=== PATIENT | female | born 1980 | race Two or more races ===

== ENCOUNTER 2017-10-10 03:01 | Emergency (ER) | payer MEDICAID ==
[~2017-10-10] VITALS: Ht 167.6 cm; Wt 75.0 kg
[2017-10-10 05:26] LABS: CLARITY URINE TURBID (CLEAR); COLOR URINE DARK YELLOW (YELLOW); KETONES URINE TRACE (NEGATIVE); LEUKOCYTE ESTERASE URINE 2+ (NEGATIVE); NITRITE URINE NEGATIVE (NEGATIVE); OCCULT BLOOD URINE 3+ (NEGATIVE); PROTEIN URINE 1+ (NEGATIVE); SPECIFIC GRAVITY URINE 1.032 (1.005-1.030)
[2017-10-10] MEDS ORDERED: SODIUM CHLORIDE 0.9% 1,000 ML IV ONE (06:34)
[2017-10-10] MEDS ORDERED: ACETAMINOPHEN 325MG TABLET PO ONE (06:45)
[2017-10-10 07:22] LABS: BASOPHILS % 0.6 % (0.0-2.0); EOSINOPHILS % 0.9 % (0.0-5.0); HEMATOCRIT. 36.5 % (36.0-48.0); HEMOGLOBIN. 12.2 g/dL (12.0-16.0); LYMPHOCYTES % 19.6 % (20.0-50.0); MEAN CORPUSCULAR HEMOGLOBIN 28.7 pg (28.0-32.0); MEAN CORPUSCULAR VOLUME 85.3 fL (81.0-99.0); MEAN PLATELET VOLUME 9.3 fl (7.4-10.4); MONOCYTES % 7.2 % (2.0-8.0); NEUTROPHILS % 71.7 % (40.0-76.0); PLATELET 216 x1000/uL (130-400); RED BLOOD CELL COUNT 4.27 mill/uL (4.2-5.4); RED CELL DISTRIBUTION WIDTH 12.8 % (11.6-14.6)
[2017-10-10 07:35] LABS: CHLORIDE 104 mEq/L (98-107)
[2017-10-10 07:58] LABS: B-HCG QUANTITATIVE 111001 mIU/mL (<3)
[2017-10-10 09:12] VITALS: BP 107/72
== END 2017-10-10 10:24 | disposition home or self-care (01) ==
LOC: ER 04:37
DX: O23.41 Unspecified infection of urinary tract in pregnancy, first trimester (principal); Z3A.09 9 weeks gestation of pregnancy; Z98.890 Other specified postprocedural states
CPT/HCPCS: 36415; 76801; 76817; 80053; 81003; 84702; 85025; 86850; 86900; 86901; 87077; 87086; 96360; 99285; J7030; Z7610

== ENCOUNTER 2017-10-18 13:26 | Emergency (ER) | payer MEDICAID ==
[~2017-10-18] VITALS: Ht 167.6 cm; Wt 72.2 kg
[2017-10-18] MEDS ORDERED: SODIUM CHLORIDE 0.9% 1,000 ML IV ONE (14:30)
[2017-10-18] MEDS ORDERED: METOCLOPRAMIDE HCL 10MG/2ML VIAL IV ONE (14:30)
[2017-10-18 14:44] LABS: BASOPHILS % 0.7 % (0.0-2.0); EOSINOPHILS % 0.7 % (0.0-5.0); HEMOGLOBIN. 12.3 g/dL (12.0-16.0); LYMPHOCYTES % 17.4 % (20.0-50.0); MEAN CORPUSCULAR HEMOGLOBIN 29.2 pg (28.0-32.0); MEAN CORPUSCULAR VOLUME 85.3 fL (81.0-99.0); MEAN PLATELET VOLUME 8.9 fl (7.4-10.4); MONOCYTES % 6.8 % (2.0-8.0); NEUTROPHILS % 74.4 % (40.0-76.0); PLATELET 221 x1000/uL (130-400); RED BLOOD CELL COUNT 4.22 mill/uL (4.2-5.4); RED CELL DISTRIBUTION WIDTH 12.8 % (11.6-14.6)
[2017-10-18 14:49] LABS: CHLORIDE 103 mEq/L (98-107)
[2017-10-18 14:51] LABS: PROTHROMBIN TIME 10.7 sec (9.4-11.6)
[2017-10-18 15:15] LABS: B-HCG QUANTITATIVE 98968 mIU/mL (<3)
[2017-10-18 17:33] LABS: CLARITY URINE CLEAR (CLEAR); COLOR URINE DARK YELLOW (YELLOW); KETONES URINE 2+ (NEGATIVE); LEUKOCYTE ESTERASE URINE NEGATIVE (NEGATIVE); NITRITE URINE NEGATIVE (NEGATIVE); OCCULT BLOOD URINE 2+ (NEGATIVE); PH URINE 5.5 (4.5-8.0); PROTEIN URINE TRACE (NEGATIVE); SPECIFIC GRAVITY URINE 1.029 (1.005-1.030)
[2017-10-18 19:46] VITALS: BP 100/59
== END 2017-10-18 19:46 | disposition home or self-care (01) ==
LOC: ER 18:04
DX: O21.9 Vomiting of pregnancy, unspecified (principal); Z98.890 Other specified postprocedural states; Z3A.10 10 weeks gestation of pregnancy
CPT/HCPCS: 36415; 80053; 81003; 81025; 83690; 84702; 85025; 85610; 96361; 96374; 99285; J2765; J7030; Z7610

== ENCOUNTER 2020-12-01 11:31 | Inpatient (IN) | payer MEDICAID ==
[~2020-12-01] VITALS: Ht 165.1 cm; Wt 73.5 kg
[2020-12-01] MEDS ORDERED: SODIUM CHLORIDE 0.9% 1,000 ML IV ONE (12:15)
[2020-12-01 13:17] LABS: BASOPHILS % 0.3 % (0.0-2.0); HEMATOCRIT. 36.6 % (36.0-48.0); HEMOGLOBIN. 12.4 g/dL (12.0-16.0); LYMPHOCYTES % 13.4 % (20.0-50.0); MEAN CORPUSCULAR HEMOGLOBIN 28.3 pg (28.0-32.0); MEAN CORPUSCULAR VOLUME 83.9 fL (81.0-99.0); MEAN PLATELET VOLUME 9.7 fl (7.4-10.4); MONOCYTES % 11.6 % (2.0-8.0); NEUTROPHILS % 74.7 % (40.0-76.0); PLATELET 100 x1000/uL (130-400); RED BLOOD CELL COUNT 4.37 mill/uL (4.2-5.4)
[2020-12-01 13:22] LABS: CLARITY URINE CLOUDY (CLEAR); COLOR URINE DARK YELLOW (YELLOW); KETONES URINE 2+ (NEGATIVE); LEUKOCYTE ESTERASE URINE TRACE (NEGATIVE); NITRITE URINE NEGATIVE (NEGATIVE); OCCULT BLOOD URINE 3+ (NEGATIVE); PH URINE 5.5 (4.5-8.0); PROTEIN URINE 3+ (NEGATIVE); SPECIFIC GRAVITY URINE 1.028 (1.005-1.030)
[2020-12-01 13:24] LABS: CHLORIDE 105 mEq/L (98-107)
[2020-12-01 13:26] LABS: PROTHROMBIN TIME 10.9 sec (9.6-11.0)
[2020-12-01 13:52] LABS: HCG SCREEN NEGATIVE
[2020-12-01 15:09] LABS: AMYLASE 143 IU/L (25-115)
[2020-12-01] MEDS ORDERED: PIPERACILLIN/TAZ 3.375G PREMIX 50 ML IV ONE (15:30)
[2020-12-01] MEDS ORDERED: POTASSIUM CHLORIDE 20MEQ TABLET SR PO ONE (15:45)
[2020-12-01] MEDS ORDERED: DIPHENHYDRAMINE 50MG/ML VIAL IV PRN (18:00)
[2020-12-01] MEDS ORDERED: CLONIDINE 0.1MG TABLET PO PRN (18:00)
[2020-12-01] MEDS ORDERED: MAGNESIUM/ALUMINUM HYDROXIDE/SIMETHICONE 30ML UDC PO PRN (18:00)
[2020-12-01] MEDS ORDERED: LOPERAMIDE 2MG/15ML UDC PO PRN (18:00)
[2020-12-01] MEDS: SODIUM CHLORIDE 0.9% 1,000 ML IV SCH (18:28)
[2020-12-01] MEDS ORDERED: LEVOFLOXACIN 500MG PREMIX 100 ML IV SCH (19:00)
[2020-12-01] MEDS: ACETAMINOPHEN 325MG TABLET PO PRN (22:05)
[2020-12-01 23:44] VITALS: BP 109/61
[2020-12-02] VITALS: BP 107/61
[2020-12-02 04:00] VITALS: BP 108/69
[2020-12-02] MEDS: SODIUM CHLORIDE 0.9% 1,000 ML IV SCH ×3 (04:24→23:55)
[2020-12-02] MEDS: ONDANSETRON HCL 4MG/2ML INJ IV PRN (04:24)
[2020-12-02] MEDS: ACETAMINOPHEN 325MG TABLET PO PRN ×4 (04:25→21:50)
[2020-12-02 06:29] LABS: BASOPHILS % 0.3 % (0.0-2.0); EOSINOPHILS % 0.2 % (0.0-5.0); HEMATOCRIT. 31.6 % (36.0-48.0); HEMOGLOBIN. 10.7 g/dL (12.0-16.0); LYMPHOCYTES % 17.2 % (20.0-50.0); MEAN CORPUSCULAR HEMOGLOBIN 28.3 pg (28.0-32.0); MEAN CORPUSCULAR VOLUME 83.3 fL (81.0-99.0); NEUTROPHILS % 71.3 % (40.0-76.0); PLATELET 83 x1000/uL (130-400); RED CELL DISTRIBUTION WIDTH 12.8 % (11.6-14.6)
[2020-12-02 06:51] LABS: CHLORIDE 107 mEq/L (98-107)
[2020-12-02 06:59] LABS: PHOSPHORUS 2.3 mg/dL (2.5-4.9)
[2020-12-02 08:00] VITALS: BP 101/53
[2020-12-02] MEDS ORDERED: POTASSIUM CHLORIDE INJ 40 MEQ in DEXT 5% WATER 250 ML IV ONE (08:00)
[2020-12-02] MEDS: PANTOPRAZOLE SODIUM 40 MG/VIAL IV SCH (08:55)
[2020-12-02 12:00] VITALS: BP 114/64
[2020-12-02] MEDS ORDERED: POTASSIUM CHLORIDE 20MEQ TABLET SR PO NR ×2 (13:23→16:15)
[2020-12-02 16:00] VITALS: BP 113/69
[2020-12-02] MEDS ORDERED: ERGOCALCIFEROL 50000UNITS CAPSULE PO NR (16:00)
[2020-12-02 20:00] VITALS: BP 115/70
[2020-12-03] VITALS: BP 104/56
[2020-12-03] MEDS: ONDANSETRON HCL 4MG/2ML INJ IV PRN ×3 (02:19→14:46)
[2020-12-03 04:00] VITALS: BP 118/65
[2020-12-03] MEDS: ACETAMINOPHEN 325MG TABLET PO PRN ×3 (06:05→17:13)
[2020-12-03 07:34] LABS: CHLORIDE 105 mEq/L (98-107)
[2020-12-03 08:00] VITALS: BP 99/66
[2020-12-03] MEDS ORDERED: POTASSIUM CHLORIDE 20MEQ TABLET SR PO NR ×2 (08:45→10:00)
[2020-12-03] MEDS: PANTOPRAZOLE SODIUM 40 MG/VIAL IV SCH (08:54)
[2020-12-03 09:45] LABS: BG BASE EXCESS -1.4 mmol/L (-2.0-2.0); BG CARBOXYHEMOGLOBIN 0.2 % (0.5-1.5); BG DEOXYHEMOGLOBIN 4.7 % (0.0-5.0); BG FRACTION INSPIRED OXYGEN 21; BG HCO3 ACT 21.9 mmol/L (22.0-26.0); BG METHEMOGLOBIN 0.3 % (0.0-1.5); BG OXYGEN SATURATION 95.3 % (92.0-98.5); BG OXYHEMOGLOBIN 94.8 % (94.0-97.0); BG PCO2 32.2 mmHg (35.0-45.0); BG PH 7.451 (7.350-7.450); BG PO2 76.7 mmHg (75.0-100.0); BG SAMPLE SITE RIGHT BRACHIAL; BG TOTAL HEMOGLOBIN 11.3 g/dL (12.0-18.0); BG VENT MODE ROOM AIR
[2020-12-03] MEDS ORDERED: POTASSIUM CHLORIDE 20MEQ TABLET SR PO ONE (09:55)
[2020-12-03] MEDS: SODIUM CHLORIDE 0.9% 1,000 ML IV SCH (10:06)
[2020-12-03 12:00] VITALS: BP 100/66
[2020-12-03] MEDS ORDERED: CEFTRIAXONE 1 G PREMIX 50 ML IV SCH (13:45)
[2020-12-03] MEDS ORDERED: POTASSIUM CHLORIDE 20MEQ/PACKET PO NR (14:15)
[2020-12-03] MEDS ORDERED: CEFTRIAXONE 1,000 MG in DEXTROSE 5% WATER 50 ML IV SCH (15:00)
[2020-12-03 15:58] VITALS: BP 100/66
[2020-12-03 16:00] VITALS: BP 118/68
[2020-12-03] MEDS ORDERED: FAMOTIDINE 20MG TABLET PO SCH (21:00)
== END 2020-12-03 17:45 | disposition home or self-care (01) | DRG 720 ==
LOC: ER 11:31 → EDBEDREQ 14:57 → 7WST 15:24 → EDBEDREQ 15:29 → ENRESERV 19:42
PROVIDERS: ADMIT Internal Medicine; ATTEND Internal Medicine
DX: A41.89 Other specified sepsis (principal); J96.00 Acute respiratory failure, unspecified whether with hypoxia or hypercapnia; J12.82 Pneumonia due to coronavirus disease 2019; U07.1 COVID-19; D69.6 Thrombocytopenia, unspecified; F17.210 Nicotine dependence, cigarettes, uncomplicated; R74.01 Elevation of levels of liver transaminase levels; E87.6 Hypokalemia; N39.0 Urinary tract infection, site not specified; D64.9 Anemia, unspecified; K52.9 Noninfective gastroenteritis and colitis, unspecified; Z98.891 History of uterine scar from previous surgery
CPT/HCPCS: 36415; 36600; 71045; 76705; 80048; 80053; 81003; 82150; 82375; 82728; 82805; 82962; 83615; 83735; 84100; 84145; 84703; 85025; 85379; 86140; 99285; C9113; J0696; J2405; J2543; J3480; J7030; J7060; U0003; U0005